=== PATIENT | female | born 1950 | race Caucasian/White ===

== ENCOUNTER → 2020-04-26 | Day surgery (SDC) | payer MEDICARE ==
[~2020-04-26] MED LIST: AMMONIUM LACTA140 GM TP; AUGMENTIN 875-1 EACH PO; CATAPRES 0.1MG0.1 MG PO; CEPHALEXIN500 MG PO; CYCLOBENZAPRINE10 MG PO; FISH OIL 1,0001 EACH PO; GABAPENTIN400 MG PO; IBUPROFEN800 MG PO; LISINOPRIL20 MG PO; LOSARTAN-HCTZ1 EAC1 PO; METFORMIN HCL1000 MG PO; METOPROLOL SUCC50 MG PO; MULTI FOR HER1 EACH PO; SIMVASTATIN20 MG PO; TRESIBA FL100 UNIT/1 SQ; TROSPIUM CHLORI20 MG PO; VITAMIN B-121000 MC3 PO
== END | disposition home or self-care (01) ==
LOC: OR 11:29
DX: N32.81 Overactive bladder (principal); N39.41 Urge incontinence; I25.2 Old myocardial infarction; E78.00 Pure hypercholesterolemia, unspecified; Z79.899 Other long term (current) drug therapy; Z79.4 Long term (current) use of insulin; Z77.22 Contact with and (suspected) exposure to environmental tobacco smoke (acute) (chronic)
CPT/HCPCS: J7040

== ENCOUNTER → 2020-07-26 | Day surgery (SDC) | payer MEDICARE | END | disposition home or self-care (01) | LOC: OR 11:59 | DX: N32.81 Overactive bladder (principal); N39.41 Urge incontinence; E11.9 Type 2 diabetes mellitus without complications; I10 Essential (primary) hypertension; E78.00 Pure hypercholesterolemia, unspecified; F32.9 Major depressive disorder, single episode, unspecified; I25.2 Old myocardial infarction; G47.30 Sleep apnea, unspecified; E66.9 Obesity, unspecified; Z99.89 Dependence on other enabling machines and devices; Z68.39 Body mass index [BMI] 39.0-39.9, adult; Z79.4 Long term (current) use of insulin; Z79.899 Other long term (current) drug therapy | CPT/HCPCS: 82962; J0585; J1956; J2001; J2250; J2704; J3010; J7030; J7120 ==

== ENCOUNTER 2020-08-26 14:40 | Emergency (ER) | payer MEDICARE ==
[~2020-08-26 14:40] MED LIST changes: -CATAPRES 0.1MG0.1 MG PO; -CEPHALEXIN500 MG PO; -CYCLOBENZAPRINE10 MG PO; -IBUPROFEN800 MG PO; -LOSARTAN-HCTZ1 EAC1 PO
[2020-08-26 17:57] LABS: HEMOGLOBIN 13.3 gm/dl (12.3-15.3); RED BLOOD COUNT 4.5 M/UL (4.00-5.10); WHITE BLOOD COUNT 5.7 K/UL (4.5-11.0)
[2020-08-26] MEDS ORDERED: IBUPROFEN800 MG PO (19:07)
[2020-08-26] MEDS ORDERED: CYCLOBENZAPRINE10 MG PO (19:07)
== END 2020-08-26 20:11 | disposition home or self-care (01) ==
LOC: ER1 14:40
PROVIDERS: Preventive Medicine Occupational Medicine
DX: M62.838 Other muscle spasm (principal); I10 Essential (primary) hypertension; E11.9 Type 2 diabetes mellitus without complications
CPT/HCPCS: 70450; 72125; 80053; 85025; 86140; 99284

== ENCOUNTER 2020-09-23 16:47 | Inpatient (IN) | payer MEDICARE, MEDICAID ==
[~2020-09-23] VITALS: Ht 167.6 cm; Wt 104.3 kg
[~2020-09-23 16:47] MED LIST changes: +CYCLOBENZAPRINE10 MG PO; +IBUPROFEN800 MG PO
[2020-09-23 18:30] LABS: HEMOGLOBIN 13.1 gm/dl (12.3-15.3); RED BLOOD COUNT 4.44 M/UL (4.00-5.10); WHITE BLOOD COUNT 9.4 K/UL (4.5-11.0)
[2020-09-24 06:11] LABS: HEMOGLOBIN 11.7 gm/dl (12.3-15.3); RED BLOOD COUNT 4.02 M/UL (4.00-5.10); WHITE BLOOD COUNT 7.1 K/UL (4.5-11.0)
[2020-09-24 06:47] LABS: BUN/CREATININE RATIO 31 (0-10)
[2020-09-24] MEDS ORDERED: CATAPRES 0.1MG0.1 MG PO (08:46)
[2020-09-24] MEDS ORDERED: LOSARTAN-HCTZ1 EAC1 PO (08:47)
[2020-09-24] MEDS ORDERED: TROSPIUM CHLORI20 MG PO (08:53)
[2020-09-25 04:15] LABS: HEMOGLOBIN 12.7 gm/dl (12.3-15.3); RED BLOOD COUNT 4.34 M/UL (4.00-5.10); WHITE BLOOD COUNT 6.1 K/UL (4.5-11.0)
[2020-09-26] MEDS ORDERED: CEPHALEXIN500 MG PO (12:56)
== END 2020-09-26 15:01 | disposition home or self-care (01) | DRG 682 ==
LOC: ER1 16:47 → CDU 20:53 → M/S 20:53
PROVIDERS: Internal Medicine; Preventive Medicine Occupational Medicine; ADMIT Internal Medicine
DX: N17.9 Acute kidney failure, unspecified (principal); G93.41 Metabolic encephalopathy; N30.00 Acute cystitis without hematuria; B96.89 Other specified bacterial agents as the cause of diseases classified elsewhere; E86.0 Dehydration; I11.9 Hypertensive heart disease without heart failure; E66.01 Morbid (severe) obesity due to excess calories; N39.498 Other specified urinary incontinence; F03.90 Unspecified dementia, unspecified severity, without behavioral disturbance, psychotic disturbance, mood disturbance, and anxiety; R53.81 Other malaise; E11.40 Type 2 diabetes mellitus with diabetic neuropathy, unspecified; Z79.4 Long term (current) use of insulin; Z83.3 Family history of diabetes mellitus; Z68.37 Body mass index [BMI] 37.0-37.9, adult
CPT/HCPCS: 36415; 70450; 71045; 80048; 80053; 81001; 82140; 82550; 82553; 82607; 82746; 82962; 83036; 83605; 83690; 83735; 84100; 84132; 84484; 85025; 85027; 85652; 86140; 87040; 87077; 87086; 87186; 96374; 97116; 97116-GP-CQ; 97161; 97530-GP-CQ; 99285; C9113; J0696; J1650; J7030; J7070

== ENCOUNTER → 2021-02-02 | Outpatient (CLI) | payer MEDICARE ==
[~2021-02-02] MED LIST changes: +CATAPRES 0.1MG0.1 MG PO; +CEPHALEXIN500 MG PO; +LOSARTAN-HCTZ1 EAC1 PO
== END ==
LOC: EXRD 01-14 15:30
DX: N19 Unspecified kidney failure (principal)
CPT/HCPCS: 76775

== ENCOUNTER → 2021-05-16 | Outpatient (CLI) | payer MEDICARE | LOC: KOH-I 05-09 10:00 | DX: R55 Syncope and collapse (principal); R29.6 Repeated falls; E11.9 Type 2 diabetes mellitus without complications; I10 Essential (primary) hypertension; R25.3 Fasciculation; E78.5 Hyperlipidemia, unspecified | CPT/HCPCS: 70450; 93880 ==

== ENCOUNTER → 2021-09-01 | Outpatient (CLI) | payer MEDICARE | LOC: KOH-I 08-22 15:45 | DX: R20.0 Anesthesia of skin (principal); R20.9 Unspecified disturbances of skin sensation | CPT/HCPCS: 93925 ==